=== PATIENT | male | born 1955 | race Caucasian/White ===

== ENCOUNTER 2021-05-25 13:50 | Emergency (ER) | payer MEDICARE | END 2021-05-25 18:37 | disposition home or self-care (01) | LOC: ER1 13:50 | PROVIDERS: Family Medicine | DX: M16.11 Unilateral primary osteoarthritis, right hip (principal); N18.9 Chronic kidney disease, unspecified; E11.22 Type 2 diabetes mellitus with diabetic chronic kidney disease; E11.65 Type 2 diabetes mellitus with hyperglycemia; E79.0 Hyperuricemia without signs of inflammatory arthritis and tophaceous disease; M79.604 Pain in right leg; M79.605 Pain in left leg; G89.29 Other chronic pain; Z79.4 Long term (current) use of insulin; F17.200 Nicotine dependence, unspecified, uncomplicated; Z91.040 Latex allergy status | CPT/HCPCS: 73502; 73552; 73564; 80048; 84550; 99284 ==